=== PATIENT | female | born 1980 | race Caucasian/White ===

== ENCOUNTER → 2019-08-07 | Outpatient (CLI) | payer OTHER ==
--- NOTE | 2019-08-07 15:04 | RAD ---
HAND RIGHT 3V DATE: 08/07/2019 12:00 AM INDICATION: Fall, fifth digit pain COMPARISON: None. FINDINGS: Bones: There is no evidence of acute fracture or dislocation. Joints: The joint spaces are normal. Miscellaneous: None. IMPRESSION: No evidence of acute fracture. Electronically signed by: William Warren MD (08/07/2019 3:01 PM) [id number]
--- NOTE | 2019-08-07 15:05 | RAD ---
FOOT RIGHT 3V DATE: 08/07/2019 12:00 AM INDICATION: Fall, first and second digit pain COMPARISON: None. FINDINGS: Bones: There is no evidence of acute fracture or dislocation. Joints: Moderate degenerative changes of the second MTP joint Miscellaneous: None. IMPRESSION: No evidence of acute fracture. Electronically signed by: William Warren MD (08/07/2019 3:02 PM) [email or web address]
== END | disposition home or self-care (01) ==
LOC: RAD 13:07
PROVIDERS: ATTEND Internal Medicine Hematology & Oncology
DX: M19.071 Primary osteoarthritis, right ankle and foot (principal); M25.541 Pain in joints of right hand
CPT/HCPCS: 73130; 73630

== ENCOUNTER → 2019-08-29 | Outpatient (CLI) | payer OTHER ==
--- NOTE | 2019-08-29 08:33 | RAD ---
Pelvic ultrasound to include transabdominal and transvaginal imaging 08/29/2019 CLINICAL HISTORY: Dysfunctional uterine bleeding. TECHNIQUE: Using the distended urinary bladder as a sonographic window, a real-time ultrasound examination of the pelvis was performed. Additionally in an attempt to better evaluate the uterus and adnexa, a transvaginal ultrasound study was performed. Multiple images were obtained. FINDINGS: The uterus is within normal limits in size. It measures 7.8 x 5.5 x 3.9 cm in longitudinal, transverse, and AP dimensions. The endometrial echo complex measures 9 mm in thickness which is within normal limits. An IUD is seen within the endometrial canal within the body/fundus of the uterus. No focal abnormality of the uterus is seen. The right ovary is normal in size and echogenicity. It measures 2.9 x 2.0 x 1.5 cm in size. The left ovary is enlarged. It measures 5.0 x 4.0 x 4.0 cm in size. Within the left ovary a complex cystic mass is seen which measures 4.3 cm in greatest diameter. Normal color-flow and pulse Doppler imaging to both ovaries is seen. No free fluid is noted. IMPRESSION: 1. An IUD is seen within the endometrial canal of the uterus. 2. 4.3 cm complex cystic mass is seen involving the left ovary. This could represent a hemorrhagic cyst. A repeat pelvic ultrasound after the patient's has completed several menstrual cycles would be useful to document resolution of this finding. Electronically signed by: Jovon Beltran MD (08/29/2019 8:30 AM) [id number]
== END | disposition home or self-care (01) ==
LOC: US 07:05
PROVIDERS: ATTEND Family Medicine
DX: N83.292 Other ovarian cyst, left side (principal); N92.4 Excessive bleeding in the premenopausal period; N83.8 Other noninflammatory disorders of ovary, fallopian tube and broad ligament
CPT/HCPCS: 76830; 76856